=== PATIENT | female | born 1960 | race Two or more races ===

== ENCOUNTER 2019-04-08 07:25 | Outpatient (CLI) | payer OTHER | END 2019-04-08 07:31 | disposition home or self-care (01) | LOC: SONOGRAMA 07:25 | DX: E04.2 Nontoxic multinodular goiter (principal) ==

== ENCOUNTER 2020-09-21 14:02 | Inpatient (IN) | payer OTHER ==
[~2020-09-21] VITALS: Ht 154.9 cm; Wt 79.4 kg
[2020-09-23] MEDS ORDERED: ZITHROMAX TRI-500 MG PO (10:25)
[2020-09-23] MEDS ORDERED: PROTONIX40 MG PO (10:27)
[2020-09-23] MEDS ORDERED: ULTRACET PO (10:27)
== END 2020-09-23 11:04 | disposition home or self-care (01) | DRG 337 ==
LOC: ER 14:02 → SURH 21:35 → SEC-K 21:35 → SURH 09-22 01:47
PROVIDERS: ADMIT Surgery; ATTEND Surgery
PROC: 0DNJ4ZZ Release Appendix, Percutaneous Endoscopic Approach (ICD-10-PCS; 2020-09-21)
PROC: BW21ZZZ Computerized Tomography (CT Scan) of Abdomen and Pelvis (ICD-10-PCS; 2020-09-21)
PROC: 0DTJ4ZZ Resection of Appendix, Percutaneous Endoscopic Approach (ICD-10-PCS; principal; 2020-09-21 22:00)
DX: K35.890 Other acute appendicitis without perforation or gangrene (principal); I10 Essential (primary) hypertension; L71.8 Other rosacea; E03.8 Other specified hypothyroidism; Z20.822 Contact with and (suspected) exposure to COVID-19